=== PATIENT | male | born 1945 | race Caucasian/White ===

== ENCOUNTER 2016-08-30 09:32 | Inpatient (IN) | payer MEDICARE, OTHER ==
[~2016-08-30] VITALS: Ht 175.3 cm; Wt 81.6 kg
[2016-08-30 11:06] LABS: ALBUMIN 3.2 g/dL (3.4-5.0); ANION GAP 18.3 mmol/L (8-16); BILIRUBIN - TOTAL 0.8 mg/dL (0.2-1.3); CALCIUM 9.2 mg/dL (8.5-10.1); CARBON DIOXIDE 24.9 mmol/L (21.0-32.0); CREATININE - SERUM 2.1 mg/dL (0.6-1.3); POTASSIUM - SERUM 5.2 mmol/L (3.5-5.1)
[2016-08-30 11:31] LABS: HEMATOCRIT 30.1 % (42.0-54.0); HEMOGLOBIN 9.9 g/dL (13.5-17.5); MCH 28.5 pg (26.0-34.0); MCHC 32.9 g/dL (31.0-37.0); MCV 86.7 fL (80.0-100.0); MEAN PLATELET VOLUME 9.5 fL (7.4-10.4); PLATELET COUNT 355 10x3/uL (130-400); RBC 3.47 10x6/uL (4.20-6.10); RDW 14.3 % (11.5-14.5); WBC 26.3 10x3/uL (4.8-10.8)
[2016-08-30 12:16] LABS: LYMPHOCYTES 10 % (15-50); MONOCYTES 4 % (2-11); NEUTROPHILS 76 % (40-80); PLATELET ESTIMATE NORMAL
[2016-08-30 12:18] LABS: APPEARANCE SLT CLOUDY (CLEAR); BACTERIA MANY /hpf (NONE SEEN); BILIRUBIN NEGATIVE (NEGATIVE); COLOR YELLOW (YELLOW); EPITHELIAL CELLS 0-5 /hpf (0-5); GLUCOSE NEGATIVE (NEGATIVE); KETONE NEGATIVE (NEGATIVE); LEUKOCYTE ESTERASE 2+ (NEGATIVE); NITRITE NEGATIVE (NEGATIVE); PROTEIN NEGATIVE (NEGATIVE); RED CELLS - URINE 0-5 /hpf (0-5); SPECIFIC GRAVITY 1.015 (1.005-1.020); UROBILINOGEN NORMAL (NORMAL)
--- NOTE | 2016-08-30 18:20 | NUR ---
CURRENT PASTOR CATH D/C. PASTOR CARE PROVIDED PRIOR TO D/C. APPROXIMATELY 400CC REMAINED IN COLLECTION BAG. [address] CHILE[address] PLACED USING STERILE TECHNIQUE. SECURED TO RIGHT THIGH WITH STAT LOCK. WELL TOLERATED.
--- NOTE | 2016-08-30 18:25 | NUR ---
PATIENT RECEIVED TO FLOOR FROM ER VIA STRETCHER. TRANSFERRED TO BED. POSITIONED FOR COMFORT. FAMILY AT BEDSIDE. ORIENTED TO ROOM. SIDE RAILS UP X2. BED IN LOW POSITION. CALL LIGHT IN REACH.
[2016-08-30 18:47] VITALS: BP 90/40; BMI 26.6
[2016-08-30] MEDS ORDERED: BACLOFEN10 MG PO (18:54)
[2016-08-30] MEDS ORDERED: COMBIVENT RESPIM4 GM INH (18:54)
[2016-08-30] MEDS ORDERED: NORCO 7.5/325 T1 TA1 PO (18:57)
[2016-08-30] MEDS ORDERED: NOVOLIN R100 U/ML SQ (18:57)
[2016-08-30] MEDS ORDERED: SURFAK240 MG PO (18:58)
[2016-08-30] MEDS ORDERED: NEURONTIN 300300 MG PO (18:58)
[2016-08-30] MEDS ORDERED: SYMBICORT 16010.2 GM INH (18:59)
[2016-08-30] MEDS ORDERED: BISCOLAX10 MG/SUPP RC (18:59)
[2016-08-30] MEDS ORDERED: BUMEX 1 MG TAB1 MG PO (18:59)
[2016-08-30] MEDS ORDERED: ACETAMINOPHEN325 MG PO (19:00)
[2016-08-30] MEDS ORDERED: BAYER CHEWABLE81 MG PO (19:00)
[2016-08-30] MEDS ORDERED: LIPITOR10 MG PO (19:00)
[2016-08-30] MEDS ORDERED: PROTONIX40 MG PO (19:01)
[2016-08-30] MEDS ORDERED: MIRAPEX0.5 MG PO (19:01)
[2016-08-30] MEDS ORDERED: AMBIEN5 MG PO (19:01)
[2016-08-30] MEDS ORDERED: OXYCODONE HCL E20 MG PO (19:02)
[2016-08-30] MEDS ORDERED: METOPROLOL TART25 MG PO (19:02)
[2016-08-30] MEDS ORDERED: GLUCOPHAGE500 MG PO (19:02)
[2016-08-30] MEDS ORDERED: LISINOPRIL5 MG PO (19:03)
[2016-08-30 20:28] LABS: APPEARANCE CLOUDY (CLEAR); BILIRUBIN NEGATIVE (NEGATIVE); COLOR YELLOW (YELLOW); GLUCOSE NEGATIVE (NEGATIVE); KETONE NEGATIVE (NEGATIVE); LEUKOCYTE ESTERASE 1+ (NEGATIVE); NITRITE NEGATIVE (NEGATIVE); PROTEIN TRACE mg/dL (NEGATIVE); UROBILINOGEN NORMAL (NORMAL)
[2016-08-30 20:32] LABS: BACTERIA MODERATE /hpf (NONE SEEN)
--- NOTE | 2016-08-30 21:30 | NUR ---
TURNED PATIENT TO LEFT SIDE WITH ASSIST FROM KRISTY PARHAM. POSITIONED PATIENT WITH A PILLOW BEHIND HIS BACK.
[2016-08-30 22:08] VITALS: BP 98/48
--- NOTE | 2016-08-30 22:48 | NUR ---
PATIENT'S DAUGHTER AT BEDSIDE SETTING UP PATIENT'S C-PAP.
[2016-08-31] VITALS: BP 106/60
--- NOTE | 2016-08-31 01:30 | NUR ---
WITH ASSIST FROM RN DOCUMENTATION. TURNED PATIENT TO HIS LEFT SIDE. PASTOR CARE COMPLETED AT THIS TIME. PUT A FOLDED SHEET BETWEEN PATIENT'S KNEES.
[2016-08-31 04:00] VITALS: BP 92/62
[2016-08-31 05:16] LABS: BASOPHILS 0.1 % (0.0-2.0); EOSINOPHILS 0 % (0-7); HEMATOCRIT 23.8 % (42.0-54.0); HEMOGLOBIN 7.8 g/dL (13.5-17.5); IMMATURE GRANULOCYTES 0.3 % (0-5); LYMPHOCYTES 2.1 % (15-50); MCH 28.2 pg (26.0-34.0); MCHC 32.8 g/dL (31.0-37.0); MCV 85.9 fL (80.0-100.0); MEAN PLATELET VOLUME 9.8 fL (7.4-10.4); MONOCYTES 2.9 % (2-11); NEUTROPHILS 94.6 % (40-80); PLATELET COUNT 252 10x3/uL (130-400); RBC 2.77 10x6/uL (4.20-6.10); RDW 14.4 % (11.5-14.5); WBC 21.7 10x3/uL (4.8-10.8)
[2016-08-31 05:21] LABS: ALBUMIN 2.4 g/dL (3.4-5.0); ANION GAP 17.7 mmol/L (8-16); BILIRUBIN - TOTAL 0.55 mg/dL (0.2-1.3); CALCIUM 8.4 mg/dL (8.5-10.1); CARBON DIOXIDE 23.6 mmol/L (21.0-32.0); CREATININE - SERUM 2.3 mg/dL (0.6-1.3); POTASSIUM - SERUM 5.3 mmol/L (3.5-5.1); PROTEIN - SERUM 5.2 g/dL (6.4-8.2)
--- NOTE | 2016-08-31 06:23 | NUR ---
PATIENT UNABLE TO STAND FOR DAILY WEIGHT, BED DOES NOT WEIGH.
--- NOTE | 2016-08-31 07:25 | NUR ---
[facility].PT INCONTINENT TO BM.ASSESSMENT PER FLOW SHEET.CALL LIGHT IN REACH.BED ALARM ON AND FUNCTIONING
--- NOTE | 2016-08-31 07:25 | NUR ---
ASSESSMEN TPER FLOW SHEET.PT WITHOUT DISTRESS.CALL LIGHT IN REACH
[2016-08-31 09:10] VITALS: BP 86/41
[2016-08-31 12:51] VITALS: BP 93/41
[2016-08-31 13:34] VITALS: Ht 175.3 cm; Wt 81.6 kg
--- NOTE | 2016-08-31 15:25 | NUR ---
LEFT FLOOR VIA BED FOR CT
--- NOTE | 2016-08-31 15:47 | NUR ---
BACK FROM CT,MEDS ORDERED
--- NOTE | 2016-08-31 16:33 | NUR ---
CM CALLED THE [facility] IN [place] REGARDING PATIENT TRANSFER. PATIENT HAD SURGERY ON 08/14 PER REANNA SENA AND STATED WOUND HAS DEHISCED. [facility] ([facility]) STATED THEY WOULD CALL [facility] BACK - PHONE NUMBER PROVIDED AND STATED THEY SHOULD TALK WITH DR. THORPE
--- NOTE | 2016-08-31 16:36 | NUR ---
CM CALLED THE [facility] IN [place] REGARDING PATIENT TRANSFER. PATIENT HAD SURGERY ON 08/14 PER REANNA SENA AND STATED WOUND IS INFECTED AND HAS DEHISCED. [facility] ([facility]) STATED THEY WOULD CALL [facility] BACK - PHONE NUMBER PROVIDED AND STATED THEY SHOULD TALK WITH DR. THORPE.
--- NOTE | 2016-08-31 17:56 | NUR ---
DR. THORPE SPOKE WITH DR. ARAUJO FROM THE [facility] . SHE WILL BE THE ACCEPTING PHYSICIAN PATIENT HAD NEAUROSURGERY THERE JUL 2016. REASON FOR TRANSFER IS FOR NEUROSURGERY TO FOLLOW HIS POST-OP WOUND INFECTION TO THORACIC SPINE. AWAITING BED CONTROL FOR ROOM #.
--- NOTE | 2016-08-31 17:59 | NUR ---
SPOKE WITH TENZIN PATIENT'S DAUGHTER AND POTia . INFORMED DAUGHTER THAT PATIENT IS BEING TRANSFERRED TO THE [facility] WHEN A BED IS AVAILABLE. SHE IS AGREEABLE WITH THE PLAN OF CARE. SHE WISHES TO BE CALLED WHEN PATIENT HAS A ROOM. INFORMED BEDSIDE NURSE OF THIS REQUEST.
--- NOTE | 2016-08-31 18:54 | NUR ---
REPORT TO [facility] SPOKE WITH ALEXA GUIDO RN.
--- NOTE | 2016-08-31 19:21 | NUR ---
REMAINS WITHOUT CHANGE.CONT PLAN OF CARE
--- NOTE | 2016-08-31 20:07 | NUR ---
PT IS RESTING IN BED AWAITING AMBULANCE TRANSFER TO [facility]. ALERT AND ORIENTED X 3. DENIES ACUTE PAIN OR DISCOMFORT. IV INFUSING WITHOUT DIFFICULTY. NO REDNESS OR EDEMA NOTED AT THE INSERTION SITE. PASTOR CATH IS PATENT AND DRAINING TO A GRAVITY BAG. TELEMETRY DC'D DUE TO PENDING TRANSFER. CONTACT PRECAUTIONS OBSERVED WITH PT. SR'S ARE UP X 3 IN BED. CALL LIGHT AND BEDSIDE TABLE ARE WITHIN EASY REACH.
--- NOTE | 2016-09-02 14:36 | HP ---
PATIENT: STANFORD SILVA MEDICAL RECORD: [id number] ACCOUNT: [id number] LOCATION:D.[facility] : 43 ADMISSION DATE: 08/30/16 HISTORY AND PHYSICAL EXAMINATION HISTORY OF PRESENT ILLNESS: Mr. Silva is a 70-year-old patient who apparently resides in a local nursing facility that presents to the Emergency Room with mental status change. He recently underwent a thoracic surgery in [place] and is paraplegic. He has an indwelling Clarke catheter. His urinalysis is abnormal. He has a white count of 26,000, H&H is 9.9 and 30, BUN is 52, creatinine 2.1, potassium is 5.2, sodium 133 and glucose is 152. Urine is positive for nitrites and white cells. His x-ray revealed nothing acute. CT of the abdomen reveals moderate amount of feces. He is admitted at this time for IV antibiotics and fluids. PAST MEDICAL HISTORY: Again, significant for history of seizure at the age of 17, diabetes, hypertension, coronary artery disease with previous stent placement, and paraplegia. PAST SURGICAL HISTORY: Include an appendectomy, left elbow, Nadege, rotator cuff, carpal tunnel and recent thoracic surgery. ALLERGIES: None known. HOME MEDICATIONS: See intermediate MAR. FAMILY HISTORY: Noncontributory. SOCIAL HISTORY: The patient does not smoke or drink. REVIEW OF SYSTEMS: Somewhat poor historian unaware of any fever, generalized weakness, some abdominal pain, denies nausea or vomiting. PHYSICAL EXAMINATION: GENERAL: He is alert and cooperative, not a very good historian, difficult to stay on track when asked questions. HEENT: Head is normocephalic, sclerae nonicteric. Mucous membranes appear a little dry. NECK: Soft and supple. HEART: Regular. LUNGS: Clear. BACK: Incision on back shows a little bit of separation with mild drainage at the lower end of the incision. There is no surrounding redness or signs of overt infection. EXTREMITIES: Lower extremities reveal some edema and loss of motor function. IMPRESSION: 1. Urinary tract infection. 2. Marked leukocytosis. 3. Paraplegia with recent thoracic surgery. 4. Diabetes. 5. Renal insufficiency. PLAN: Admit, IV antibiotics, check cultures and IV fluids. We will get more records. See orders for plan. HISTORY AND PHYSICAL [id number] STANFORD SILVA TRANSINT:[id number] Voice Confirmation ID: [id number] DOCUMENT ID: [id number] IBRAHIMA MATAMOROS DO at 1436 CC: [id number] DICTATION DATE: 08/30/161836 [employer] SUPERVISOR: 08/30/161954 DIS IN 08/31/16 [facility] [address] [id number]
--- NOTE | 2016-10-09 10:09 | DS ---
PATIENT:STANFORD ARAGON :43 MEDICAL RECORD: [id number] DISCHARGE SUMMARY ADMISSION DATE: 08/30/16 DISCHARGE DATE: 08/31/16 This is a discharge dated 08/31/2016 from the inpatient hospital. SECONDARY DIAGNOSES: 1. Mental status change. 2. Sepsis. 3. Leukocytosis. 4. Urinary tract infection. 5. Chronic Clarke catheter. 6. Hyponatremia. 7. Hyperkalemia. 8. Paraplegia. 9. Seizure. 10. Diabetes. 11. Hypertension. 12. Coronary artery disease. 13. Renal insufficiency. 14. Anemia. 15. Insomnia. 16. Gastroesophageal reflux disease. 17. Parkinson's disease. 18. Polyneuropathy. 19. Osteoarthritis. HOSPITAL COURSE: Full H&P is located elsewhere on the chart on this 70-year-old male who was admitted with mental status changes and found to be septic with a UTI. He was given IV fluids for hydration, but no free water. Electrolytes were managed by protocol. Blood cultures and urine cultures were done. Fingerstick blood sugars were monitored with appropriate adjustment in medications as needed. It was recommended to use his home CPAP unit. He had had recent back surgery with some wound dehiscence. Cultures were obtained of that wound as well. He had a CT thoracic spine with alignment appearing good status post surgery. The chest x-ray was significant with bibasilar airspace disease, possible atelectasis or pneumonia. Dr. Hernandez was consulted from infectious disease and urine cultures were growing Gram-negative rods. He was on Rocephin and Levaquin for antibiotic coverage. He had Staph aureus in blood cultures. Vancomycin was added. Medications were adjusted for renal dysfunction. Case management was involved for discharge planning for transfer to the [place]. He was considered medically stable for transfer on 08/31/2016. DISCHARGE MEDICATIONS: As per discharge medication reconciliation. DISCHARGE DISPOSITION: The patient is discharged to the [facility] to the services of Dr. Mason. He will follow up with primary care in after discharge from the [facility] facility. At least 30 minutes were spent in this discharge activity. TRANSINT:[id number] Voice Confirmation ID: [id number] DOCUMENT ID: [id number] Dictated By: MAR LEWIS DISCHARGE SUMMARY REPORT [id number] STANFORD ARAGON I have interviewed/examined the above patient and agree with these documented findings. HUEY THORPE MD at 1009 at 1010 CC: [id number] DICTATION DATE: 10/05/16 1611 TEST EXAMINER: 10/06/16 0836 DIS IN 08/31/16 [place] [id number] [place] [id number]
== END 2016-08-31 21:07 | disposition short-term general hospital (02) | DRG 872 ==
LOC: D.ER 09:32 → D.MS 14:39
PROVIDERS: Emergency Medicine; ADMIT Family Medicine
PROC: 0T2BX0Z Change Drainage Device in Bladder, External Approach (ICD-10-PCS; principal; 2016-08-30)
DX: A41.9 Sepsis, unspecified organism (principal); N39.0 Urinary tract infection, site not specified; G82.20 Paraplegia, unspecified; T81.30XA Disruption of wound, unspecified, initial encounter; N17.9 Acute kidney failure, unspecified; G47.00 Insomnia, unspecified; K21.9 Gastro-esophageal reflux disease without esophagitis; I10 Essential (primary) hypertension; G20 Parkinson's disease; I51.7 Cardiomegaly; M62.9 Disorder of muscle, unspecified; E11.42 Type 2 diabetes mellitus with diabetic polyneuropathy; Z79.4 Long term (current) use of insulin; I25.10 Atherosclerotic heart disease of native coronary artery without angina pectoris; G47.33 Obstructive sleep apnea (adult) (pediatric); Z95.5 Presence of coronary angioplasty implant and graft; B95.61 Methicillin susceptible Staphylococcus aureus infection as the cause of diseases classified elsewhere; N31.9 Neuromuscular dysfunction of bladder, unspecified

== ENCOUNTER 2016-10-05 21:47 | Emergency (ER) | payer MEDICARE, OTHER ==
[2016-08-31 13:34] VITALS: BMI 26.5
[~2016-10-05 21:47] MED LIST: ACETAMINOPHEN325 MG PO; AMBIEN5 MG PO; BACLOFEN10 MG PO; BAYER CHEWABLE81 MG PO; BISCOLAX10 MG/SUPP RC; BUMEX 1 MG TAB1 MG PO; COMBIVENT RESPIM4 GM INH; GLUCOPHAGE500 MG PO; LIPITOR10 MG PO; LISINOPRIL5 MG PO; METOPROLOL TART25 MG PO; MIRAPEX0.5 MG PO; NEURONTIN 300300 MG PO; NORCO 7.5/325 T1 TA1 PO; NOVOLIN R100 U/ML SQ; OXYCODONE HCL E20 MG PO; PROTONIX40 MG PO; SURFAK240 MG PO; SYMBICORT 16010.2 GM INH
[2016-10-05 22:37] LABS: BASOPHILS 0.2 % (0.0-2.0); HEMATOCRIT 29.4 % (42.0-54.0); HEMOGLOBIN 9.5 g/dL (13.5-17.5); IMMATURE GRANULOCYTES 0.2 % (0-5); LYMPHOCYTES 11.3 % (15-50); MCH 27.5 pg (26.0-34.0); MCHC 32.3 g/dL (31.0-37.0); MEAN PLATELET VOLUME 8.8 fL (7.4-10.4); MONOCYTES 6.6 % (2-11); NEUTROPHILS 78.7 % (40-80); PLATELET COUNT 245 10x3/uL (130-400); RBC 3.46 10x6/uL (4.20-6.10); RDW 16.3 % (11.5-14.5); WBC 9.3 10x3/uL (4.8-10.8)
[2016-10-05 22:53] LABS: APPEARANCE CLEAR (CLEAR); BILIRUBIN NEGATIVE (NEGATIVE); COLOR YELLOW (YELLOW); GLUCOSE NEGATIVE (NEGATIVE); KETONE NEGATIVE (NEGATIVE); LEUKOCYTE ESTERASE TRACE (NEGATIVE); NITRITE NEGATIVE (NEGATIVE); PROTEIN 1+ mg/dL (NEGATIVE); UROBILINOGEN NORMAL (NORMAL)
[2016-10-05 22:54] LABS: RED CELLS - URINE >50 /hpf (0-5)
[2016-10-05 22:55] LABS: BACTERIA FEW /hpf (NONE SEEN); YEAST >1+ WITH HYPHAE /hpf (NONE SEEN)
[2016-10-05 22:56] LABS: ALBUMIN 1.7 g/dL (3.4-5.0); ALKALINE PHOSPHATASE 105 U/L (46-116); ALT (SGPT) 24 U/L (10-68); BILIRUBIN - TOTAL 0.25 mg/dL (0.2-1.3); CALC OSMOLALITY 254 mosm/kg (275-300); CALCIUM 8.4 mg/dL (8.5-10.1); CARBON DIOXIDE 27.5 mmol/L (21.0-32.0); CHLORIDE - SERUM 93 mmol/L (98-107); GLUCOSE 119 mg/dL (74-106); POTASSIUM - SERUM 3.8 mmol/L (3.5-5.1); PROTEIN - SERUM 6.5 g/dL (6.4-8.2); SODIUM 127 mmol/L (136-145); UREA NITROGEN 11 mg/dL (7-18); eGFR NON AFRICAN AMERICAN 78 mL/min (90-120)
[2016-10-05 23:02] LABS: AMYLASE - SERUM 47 U/L (25-115); LIPASE 102 U/L (73-393); PRO BNP 24238 pg/mL (0-125); TROPONIN-I < 0.017 ng/mL (0.000-0.060)
== END 2016-10-06 01:15 | disposition home or self-care (01) ==
LOC: D.ER 21:47
PROVIDERS: Surgery
DX: J18.9 Pneumonia, unspecified organism (principal); R06.00 Dyspnea, unspecified; S21.209A Unspecified open wound of unspecified back wall of thorax without penetration into thoracic cavity, initial encounter; I82.621 Acute embolism and thrombosis of deep veins of right upper extremity; D64.9 Anemia, unspecified; R31.9 Hematuria, unspecified; I50.9 Heart failure, unspecified; Z95.0 Presence of cardiac pacemaker

== ENCOUNTER 2016-10-24 15:21 | Emergency (ER) | payer OTHER ==
[2016-08-31 13:34] VITALS: BMI 26.5
[2016-10-24 18:33] LABS: BASOPHILS 0.3 % (0.0-2.0); EOSINOPHILS 1.6 % (0-7); HEMATOCRIT 22.7 % (42.0-54.0); IMMATURE GRANULOCYTES 0.2 % (0-5); LYMPHOCYTES 7.7 % (15-50); MCH 26.7 pg (26.0-34.0); MCV 80.8 fL (80.0-100.0); MEAN PLATELET VOLUME 9.2 fL (7.4-10.4); MONOCYTES 6.6 % (2-11); NEUTROPHILS 83.6 % (40-80); PLATELET COUNT 291 10x3/uL (130-400); RBC 2.81 10x6/uL (4.20-6.10); RDW 16.2 % (11.5-14.5); WBC 8.6 10x3/uL (4.8-10.8)
[2016-10-24 18:48] LABS: UDS - AMPHET NEGATIVE QUAL (NEGATIVE); UDS - BARB NEGATIVE QUAL (NEGATIVE); UDS - BENZO NEGATIVE QUAL (NEGATIVE); UDS - COCAINE NEGATIVE QUAL (NEGATIVE); UDS - METH NEGATIVE QUAL (NEGATIVE); UDS - OPIATE NEGATIVE QUAL (NEGATIVE); UDS - PCP NEGATIVE QUAL (NEGATIVE); UDS - THC NEGATIVE QUAL (NEGATIVE)
[2016-10-24 18:50] LABS: ALBUMIN 1.6 g/dL (3.4-5.0); ANION GAP 15.9 mmol/L (8-16); BILIRUBIN - TOTAL 0.23 mg/dL (0.2-1.3); CALCIUM 7.6 mg/dL (8.5-10.1); CARBON DIOXIDE 22.2 mmol/L (21.0-32.0); CREATININE - SERUM 4.1 mg/dL (0.6-1.3); POTASSIUM - SERUM 3.1 mmol/L (3.5-5.1); PROTEIN - SERUM 5.3 g/dL (6.4-8.2)
[2016-10-24 19:01] LABS: TROPONIN-I 0.028 ng/mL (0.000-0.060)
[2016-10-24 19:02] LABS: APPEARANCE CLEAR (CLEAR); BILIRUBIN NEGATIVE (NEGATIVE); COLOR RED (YELLOW); GLUCOSE 100 mg/dL (NEGATIVE); KETONE NEGATIVE (NEGATIVE); LEUKOCYTE ESTERASE 1+ (NEGATIVE); NITRITE NEGATIVE (NEGATIVE); PROTEIN 1+ mg/dL (NEGATIVE); UROBILINOGEN NORMAL (NORMAL)
[2016-10-24 19:03] LABS: BACTERIA FEW /hpf (NONE SEEN); RED CELLS - URINE >50 /hpf (0-5); WHITE CELLS - URINE 0-5 /hpf (0-5)
[2016-10-24 19:10] LABS: HEMOGLOBIN 7.5 g/dL (13.5-17.5)
== END 2016-10-24 22:30 | disposition short-term general hospital (02) ==
LOC: D.ER 15:21
PROVIDERS: Physician Assistant
DX: R06.02 Shortness of breath (principal); I50.9 Heart failure, unspecified; I25.10 Atherosclerotic heart disease of native coronary artery without angina pectoris; N19 Unspecified kidney failure; E87.6 Hypokalemia